=== PATIENT | male | born 1990 | race Caucasian/White ===

== ENCOUNTER 2017-12-21 19:09 | Emergency (ER) | payer OTHER ==
--- NOTE | 2017-12-21 20:01 | EDM.PDOC ---
ED HPI GENERAL MEDICAL PROBLEM - General Chief Complaint: Upper Extremity Injury/Pain Stated Complaint: PT HURT LT RING FINGER Time Seen by Provider: 12/21/17 19:17 Source of Information: Reports: Patient History Limitations: Reports: No Limitations - History of Present Illness INITIAL COMMENTS - FREE TEXT/NARRATIVE: Presents to the ER reporting that yesterday he slammed his left fourth finger in a garage door. After working today it became more sore and swollen and so he would like it checked out left ring finger Pain Score (Numeric/FACES): 4 - Related Data Allergies Allergy/AdvReac Type Severity Reaction Status Date / Time No Known Allergies Allergy Verified 12/21/17 19:21 Home Meds: Home Meds . [No Known Home Meds] 12/21/17 [History] Past Medical History HEENT History: Reports: None Cardiovascular History: Reports: None Respiratory History: Reports: None Gastrointestinal History: Reports: None Genitourinary History: Reports: None Musculoskeletal History: Reports: None Neurological History: Reports: None Psychiatric History: Reports: None Endocrine/Metabolic History: Reports: None Hematologic History: Reports: None Oncologic (Cancer) History: Reports: None Dermatologic History: Reports: None - Infectious Disease History Infectious Disease History: Reports: None - Past Surgical History Head Surgeries/Procedures: Reports: None Social & Family History - Family History Family Medical History: Noncontributory - Tobacco Use Smoking Status *Q: Never Smoker - Caffeine Use Caffeine Use: Reports: Coffee - Recreational Drug Use Recreational Drug Use: No Review of Systems - Review of Systems Review Of Systems: ROS reveals no pertinent complaints other than HPI. ED EXAM, GENERAL - Physical Exam Exam: See Below Exam Limited By: No Limitations General Appearance: Alert, No Apparent Distress Ears: Normal External Exam Nose: Normal Inspection Throat/Mouth: Normal Inspection Head: Atraumatic, Normocephalic Neck: Normal Inspection Respiratory/Chest: No Respiratory Distress, Lungs Clear, Normal Breath Sounds Cardiovascular: Normal Peripheral Pulses, Regular Rate, Rhythm GI/Abdominal: Soft Extremities: Other (Left fourth digit PIP joint swollen. Full range of motion without hesitation or limitation to both flexion and extension. CMS intact distally) Course - Vital Signs Last Recorded V/S: Last Vital Signs Temp 36.5 C 12/21/17 19:21 Pulse 76 12/21/17 19:21 Resp 18 05/08/18 19:21 BP 125/67 12/21/17 19:21 Pulse Ox 98 12/21/17 19:21 - Orders/Labs/Meds Orders: Active Orders 24 hr Category Date Time Status Fingers Fourth Digit Lt F3 [CR] Stat Exams 12/21/17 19:21 Ordered Departure - Departure Time of Disposition: 20:03 Disposition: Home, Self-Care 01 Condition: Good Clinical Impression: Avulsion fracture of bone - Discharge Information Referrals: Jeimy Hamm MD [Physician] - Additional Instructions: 1. Wear your immobilization splint at all times until seen by the hand surgeon. 2. Call Dr. Hamm's office in the morning for an appointment for follow-up. 3. Aleve 2 tabs in the morning and 2 tabs at night or ibuprofen 2-3 tabs 3 times a day as needed for pain. 4. Elevate left hand, cool packs 20 minutes every 3-4 hours until swelling resolves. - My Orders Last 24 Hours: My Active Orders 12/21/17 19:21 Fingers Fourth Digit Lt F3 [CR] Stat - Assessment/Plan Last 24 Hours: My Active Orders 12/21/17 19:21 Fingers Fourth Digit Lt F3 [CR] Stat
--- NOTE | 2017-12-22 15:50 | CR ---
EXAM DATE: 12/21/17 PATIENT'S AGE: 27 Patient: AARON RUSS Facility: [place], [place] Site . Site : 1990 Study: XRay Extremity Left 4th digit [id number]/8/2018 7:48:13 PM Ordering Physician: Doctor Cline Final Report: INDICATION: Crush injury, 4th digit. TECHNIQUE: Finger radiographs 3 views COMPARISON: None FINDINGS: Bones: On lateral view, likely avulsion at the dorsal margin of the 4th middle phalanx base. Joint spaces: Joint spaces are preserved. Soft tissues: Mild soft tissue swelling of the left 4th PIP joint. IMPRESSION: 1. Dorsal avulsion fracture, base of 4th middle phalanx, visualized on lateral view only with adjacent soft tissue swelling. Dictated by Isidoro Sims MD @ 12/21/2017 7:53:25 PM Dictated by: Isidoro Sims MD @ 12/21/2017 19:53:36 (Electronic Signature) Report Signed by Proxy. PATRICE
== END 2017-12-21 20:28 | disposition home or self-care (01) ==
LOC: MW.ED 19:09
DX: S62.625A Displaced fracture of middle phalanx of left ring finger, initial encounter for closed fracture (principal); W23.0XXA Caught, crushed, jammed, or pinched between moving objects, initial encounter
CPT/HCPCS: 73140-26-F3; 73140-F3; 99282; 99283

== ENCOUNTER 2018-02-05 00:54 | Emergency (ER) | payer OTHER ==
[2018-02-05] MEDS ORDERED: Proparacaine 0.5% Ophth Soln 15 ML Bottle EYELF ONE (01:14)
--- NOTE | 2018-02-05 01:28 | EDM.PDOC ---
ED HPI GENERAL MEDICAL PROBLEM - General Chief Complaint: Eye Problems Stated Complaint: LEFT EYE PAIN Time Seen by Provider: 02/05/18 01:03 - History of Present Illness INITIAL COMMENTS - FREE TEXT/NARRATIVE: HISTORY AND PHYSICAL: History of present illness: The patient is a 27-year-old male with no stated medical problems who has a history of "bad allergies" and takes [id number] allergy medication for this and has been here in town working since the beginning of January. Patient presents because his allergies have really flared up since his arrival here and he has had itchy eyes bilaterally with clear drainage runny nose sneezing all consistent with his allergies but at a heightened level then when he left his home in [place]. He has not had any blurred vision or any pain to his eyes but today he was rubbing his eye and a coworker said it looked like his eye was swollen or had a blister on it and he came for evaluation. Patient has not had any trauma and wear safety glasses which are fully protective at all times while at work. Is no foreign body sensation to his eye no facial pain and no headache. Review of systems: As per history of present illness and below otherwise all systems reviewed and negative. Past medical history: As per history of present illness and as reviewed below otherwise noncontributory. Surgical history: As per history of present illness and as reviewed below otherwise noncontributory. Social history: No reported history of drug or alcohol abuse. Family history: As per history of present illness and as reviewed below otherwise noncontributory. Physical exam: General: Well-developed well-nourished man who is nontoxic and vital signs are reviewed by me HEENT: Atraumatic, normocephalic, pupils reactive, EOMs are intact, sclera are noninjected bilaterally and the conjunctiva are also not erythematous or injected, negative for conjunctival pallor or scleral icterus, mucous membranes moist, throat clear, neck supple, nontender, trachea midline. At the lateral aspect of the left cornea there is gross ecchymosis noted which does not extend superiorly or medially. Fluoroscein stain was performed please see note below gross foreign bodies were appreciated Lungs: Clear to auscultation, breath sounds equal bilaterally, chest nontender. Heart: S1S2, regular rhythm no overt murmurs Abdomen: Soft, nondistended, nontender. NABS Pelvis: Deferred Genitourinary: Deferred. Rectal: Deferred. Extremities: Atraumatic, range of motion.. Neurovascular unremarkable. Neuro: Awake, alert, oriented. Cranial nerves II through XII unremarkable. Cerebellum unremarkable. Motor and sensory unremarkable throughout. Exam nonfocal. Diagnostics: Visual acuity per nursing with corrective lenses= 20/30 right and left After proparacaine was instilled fluorescing stain was performed and there was no uptake indicating corneal abrasion. No foreign body was appreciated. The patient tolerated the procedure well Therapeutics: []Proparacaine for exam Impression: Chemosis of cornea/sclera left eye, exacerbation of environmental allergies Definitive disposition and diagnosis as appropriate pending reevaluation and review of above. - Related Data Allergies Allergy/AdvReac Type Severity Reaction Status Date / Time No Known Allergies Allergy Verified 02/05/18 01:06 Home Meds: Home Meds . [No Known Home Meds] 12/21/17 [History] Past Medical History HEENT History: Reports: None Cardiovascular History: Reports: None Respiratory History: Reports: None Gastrointestinal History: Reports: None Genitourinary History: Reports: None Musculoskeletal History: Reports: None Neurological History: Reports: None Psychiatric History: Reports: None Endocrine/Metabolic History: Reports: None Hematologic History: Reports: None Oncologic (Cancer) History: Reports: None Dermatologic History: Reports: None - Infectious Disease History Infectious Disease History: Reports: None - Past Surgical History Head Surgeries/Procedures: Reports: None Social & Family History - Family History Family Medical History: Noncontributory - Tobacco Use Smoking Status *Q: Never Smoker Second Hand Smoke Exposure: No - Caffeine Use Caffeine Use: Reports: None - Recreational Drug Use Recreational Drug Use: No ED ROS GENERAL - Review of Systems Review Of Systems: ROS reveals no pertinent complaints other than HPI. ED EXAM GENERAL W FULL EYE - Physical Exam Exam: See Below (See dictation) Course - Vital Signs Last Recorded V/S: Last Vital Signs Temp 36.8 C 02/05/18 01:05 Pulse 59 L 02/05/18 01:05 Resp 18 02/05/18 01:05 BP 140/65 02/05/18 01:05 Pulse Ox 98 02/05/18 01:05 - Orders/Labs/Meds Orders: Active Orders 24 hr Category Date Time Status Communication Order [RC] STAT Care 02/05/18 01:03 Active Meds: Medications Discontinued Medications Generic Name Dose Route Start Last Admin Trade Name Les PRN Reason Stop Dose Admin Proparacaine HCl 1 ml 02/05/18 01:14 Proparacaine 0.5% Ophth Soln EYELF 02/05/18 01:15 ONETIME ONE Departure - Departure Time of Disposition: 01:26 Disposition: Home, Self-Care 01 Condition: Good Clinical Impression: Environmental allergies Chemosis Qualifiers: Laterality: left Qualified Code(s): H11.422 - Conjunctival edema, left eye - Discharge Information Referrals: PCP,None [Primary Care Provider] - Additional Instructions: The following information is given to patients seen in the emergency department who are being discharged to home. This information is to outline your options for follow-up care. We provide all patients seen in our emergency department with a follow-up referral. The need for follow-up, as well as the timing and circumstances, are variable depending upon the specifics of your emergency department visit. If you don't have a primary care physician on staff, we will provide you with a referral. We always advise you to contact your personal physician following an emergency department visit to inform them of the circumstance of the visit and for follow-up with them and/or the need for any referrals to a consulting specialist. The emergency department will also refer you to a specialist when appropriate. This referral assures that you have the opportunity for followup care with a specialist. All of these measure are taken in an effort to provide you with optimal care, which includes your followup. Under all circumstances we always encourage you to contact your private physician who remains a resource for coordinating your care. When calling for followup care, please make the office aware that this follow-up is from your recent emergency room visit. If for any reason you are refused follow-up, please contact the [facility] emergency department at and ask to speak to the emergency department charge nurse. [facility]--ophthalmology [address] [place] [address] Please try to refrain from rubbing the eye and if there is any drainage just dab gently. Do not wear contact lenses until you're followed up. Please buy over -the-counter Claritin to take daily for your allergies and he may take the Benadryl that you have already at sleep times. Please also buy [id number] Lacri-Lube to help provide a protective layer on the surface of the eye. Please call and follow-up with our health care facility administrator in the clinic at [facility] and return to ER as needed and as discussed. - My Orders Last 24 Hours: My Active Orders 02/05/18 01:03 Communication Order [RC] STAT - Assessment/Plan Last 24 Hours: My Active Orders 02/05/18 01:03 Communication Order [RC] STAT
== END 2018-02-05 01:34 | disposition home or self-care (01) ==
LOC: MW.ED 00:54
DX: H11.422 Conjunctival edema, left eye (principal)
CPT/HCPCS: 99283